=== PATIENT | male | born 1955 | race African-American/Black ===

== ENCOUNTER 2020-10-09 10:51 | Emergency (ER) | payer OTHER ==
[~2020-10-09] VITALS: Ht 188 cm; Wt 86.4 kg
[2020-10-09] MEDS ORDERED: METF-911 PO (11:19)
[2020-10-09 12:27] LABS: ANION GAP 10 mmol/L (8-16); CALCIUM, TOTAL 9.3 mg/dL (8.8-10.5); CARBON DIOXIDE 25 mmol/L (22-29); CHLORIDE 105 mmol/L (98-107); GLOMERULAR FILTR. RATE CALC > 60 mL/min (>60); GLUCOSE,RANDOM 151 mg/dL (70-110); POTASSIUM 4.8 mmol/L (3.5-5.1); SODIUM SERUM 140 mmol/L (136-145); UREA NITROGEN, BLOOD 18 mg/dL (7-18)
[2020-10-09 12:30] LABS: BASOPHILS % (AUTO) 0.2 % (0.0-2.0); EOSINOPHILS % (AUTO) 0.2 % (1.0-6.0); HEMATOCRIT 38.5 % (41-53); LYMPHOCYTES # (AUTO) 0.3 K/uL (1.0-4.8); LYMPHOCYTES % (AUTO) 6.5 % (22.0-44.0); MEAN CORPUSCULAR HEMOGLOBIN 29.2 pg (26.0-34.0); MEAN CORPUSCULAR HGB CONC 33.7 G/dL (31.0-37.0); MEAN CORPUSCULAR VOLUME 87 fL (80-100); MONOCYTES # (AUTO) 0.4 K/uL (0.1-1.0); MONOCYTES % (AUTO) 6.9 % (2.0-9.0); NEUTROPHILS # (AUTO) 4.5 K/uL (1.8-7.7); PLATELET COUNT (AUTO) 193 K/uL (150-450); RED BLOOD CELL COUNT(AUTO) 4.44 MIL/uL (4.50-5.90); RED CELL DISTRIBUTION WIDTH 13.3 % (11.5-14.5)
[2020-10-09 12:33] LABS: ALANINE AMINOTRANSFERASE 35 U/L (12-78); ALBUMIN 3.8 g/dL (3.4-5.0); ALKALINE PHOSPHATASE 90 U/L (46-116); ASPARTATE AMINOTRANSFERASE 39 U/L (15-37); BILIRUBIN,TOTAL 0.3 mg/dL (0.1-1.0); TOTAL PROTEIN, SERUM 8.1 g/dL (6.4-8.2)
[2020-10-09 12:34] LABS: ACETAMINOPHEN < 2 mcg/mL (10-30)
[2020-10-09 12:39] LABS: NEUTROPHILS % (AUTO) 86.2 % (40.0-70.0)
[2020-10-09 12:41] LABS: LACTIC ACID 3.9 mmol/L (0.4-2.0)
[2020-10-09 12:44] LABS: COVID AG,FIA SOURCE NASOPHARYNGEAL
[2020-10-09 13:31] VITALS: BP 158/102
== END 2020-10-09 14:55 | disposition designated cancer center or children's hospital (05) ==
LOC: EMS 10:51
DX: E11.8 Type 2 diabetes mellitus with unspecified complications (principal); R56.9 Unspecified convulsions; Z20.822 Contact with and (suspected) exposure to COVID-19
CPT/HCPCS: 36415; 70450; 71045; 80053; 83605; 84484; 85025; 87426; 93005; 99291; G0480; G0481